=== PATIENT | female | born 1975 | race Caucasian/White ===

== ENCOUNTER 2017-08-30 01:49 | Emergency (ER) | payer SELFPAY ==
[2017-08-30] MEDS ORDERED: TORAdol 30 mg Injection ONE (02:14)
--- NOTE | 2017-08-30 02:14 | ERPHSYRPT ---
- History of Present Illness Time Seen by Provider: 08/30/17 02:08 Source: patient Exam Limitations: no limitations Patient Subjective Stated Complaint: pt states she hit her toe on a stair and thinks it may be broken Triage Nursing Assessment: pt alert and oriented, answers questions approp. skin pink warm and dry. respirations nonlabored with lungs cta. pt ambulatory with steady gait noted. lt foot 5th digit, slightly abducted . Physician History: The patient is a 42-year-old female with her complaining that she stubbed her left little toe on a stairway for her dog is up to her bed a few minutes ago. She has pain in her left little toe. She did not take any analgesics or put ice on it. Past medical history significant for GERD and allergies. Method of Injury: direct blow Occurred: just prior to arrival Quality: constant, sharpness Severity of Pain-Max: moderate Severity of Pain-Current: moderate Lower Extremities Pain: 5th toe: left Modifying Factors: Improves With: nothing Associated Symptoms: none Allergies/Adverse Reactions: Penicillins Allergy (Verified 08/30/17 02:03) Hives promethazine HCl [From Phenergan] Allergy (Verified 08/30/17 02:03) Vomiting Sulfa (Sulfonamide Antibiotics) Allergy (Verified 08/30/17 02:03) Hives SULFATES Allergy (Uncoded 08/30/17 02:03) Hives Home Medications: Esomeprazole Magnesium [Nexium 24Hr] 20 mg PO HS 02/05/16 [History] Loratadine 10 mg [Claritin 10 mg] 10 mg PO HS 08/30/17 [History] Hx Tetanus, Diphtheria Vaccination/Date Given: Yes Hx Influenza Vaccination/Date Given: No Hx Pneumococcal Vaccination/Date Given: No Immunizations Up to Date: Yes - Review of Systems Constitutional: No Fever, No Chills Eyes: No Symptoms Ears, Nose, & Throat: No Symptoms Respiratory: No Cough, No Dyspnea Cardiac: No Chest Pain, No Edema, No Syncope Abdominal/Gastrointestinal: No Abdominal Pain, No Nausea, No Vomiting, No Diarrhea Genitourinary Symptoms: No Dysuria Musculoskeletal: Injury, Joint Pain, No Back Pain, No Neck Pain Skin: No Rash Neurological: No Dizziness, No Focal Weakness, No Sensory Changes Psychological: No Symptoms Endocrine: No Symptoms Hematologic/Lymphatic: No Symptoms Immunological/Allergic: No Symptoms All Other Systems: Reviewed and Negative - Past Medical History Pertinent Past Medical History: No Neurological History: Migraines ENT History: No Pertinent History Cardiac History: No Pertinent History Respiratory History: No Pertinent History Endocrine Medical History: No Pertinent History Musculoskeletal History: No Pertinent History GI Medical History: No Pertinent History History: No Pertinent History Psycho-Social History: No Pertinent History Female Reproductive Disorders: No Pertinent History Other Medical History: back pain - Past Surgical History Past Surgical History: Yes Neuro Surgical History: No Pertinent History Cardiac: No Pertinent History Respiratory: No Pertinent History Gastrointestinal: Cholecystectomy Genitourinary: No Pertinent History Female Surgical History: Section, Hysterectomy Other Surgical History: BROKEN NOSE REPAIR - Social History Smoking Status: Never smoker Exposure to second hand smoke: No Drug Use: none Patient Lives Alone: No - Female History Hx Last Menstrual Period: hyster Hx Now: No - Nursing Vital Signs Nursing Vital Signs: Initial Vital Signs Temperature 98.6 F 08/30/17 01:53 Pulse Rate 80 08/30/17 01:53 Respiratory Rate 18 08/30/17 01:53 Blood Pressure 141/105 08/30/17 01:53 Pain Scale Pain Intensity 5 - Physical Exam General Appearance: alert Eyes, Ears, Nose, Throat Exam: moist mucous membranes Neck Exam: non-tender, supple Cardiovascular/Respiratory Exam: chest non-tender, normal breath sounds, regular rate/rhythm, no respiratory distress Gastrointestinal/Abdominal Exam: non-tender, guarding Back Exam: normal inspection, No vertebral tenderness Hips Exam: bilateral: non-tender, normal inspection Legs Exam: bilateral leg: non-tender, normal inspection Knees Exam: bilateral knee: non-tender, normal inspection Ankle Exam: bilateral ankle: non-tender, normal inspection Foot Exam: right foot: non-tender, normal inspection, left foot: limited range of motion (left little toe), bilateral foot: swelling (left little toe) Neuro/Tendon Exam: normal sensation, normal motor functions Mental Status Exam: alert, oriented x 3, cooperative Skin Exam: normal color, warm, dry SpO2 Interpretation: normal Oxygen Delivery: Room Air - Radiology Exams Left Ankle X-ray Interpretation: Interpreted by me, Non-displaced Fracture (nondisplaced fracture of proximal phylange of left 5th toe.) Ordered Tests: Active Orders 24 hr Category Date Time Status Cold Application STAT Care 08/30/17 02:12 Active FOOT (MINIMUM 3 VIEWS) Stat Exams 08/30/17 02:12 Ordered Medication Summary Discontinued Medications Generic Name Dose Route Start Last Admin Trade Name Lupillo PRN Reason Stop Dose Admin Ketorolac Tromethamine 60 mg 08/30/17 02:12 08/30/17 02:20 Toradol 30 Mg Injection IM 08/30/17 02:13 60 mg STAT ONE Administration Ketorolac Tromethamine Confirm 08/30/17 02:14 Toradol 30 Mg Injection Administered 08/30/17 02:15 Dose 60 mg .ROUTE .Get[employer]-MED ONE - Progress Progress: improved - Departure Time of Disposition: 02:32 Departure Disposition: Home Clinical Impression: Fracture of left toe Condition: Stable Critical Care Time: No Referrals: Dorothy Amaya, [employer] [Primary Care Provider] - Additional Instructions: You have fractured bone at the base of her left little toe. You were given Toradol 60 mg by IM in the ER. Continue with naproxen 500 mg 2 times a day as needed for pain. Apply ice to the area as needed. Keep the toes bhavesh taped as needed. He will take 6-8 weeks for the fractured bone to heal. Follow-up with your primary medical doctor next week. Prescriptions: Naproxen 500 mg PO BID PRN #30 tablet.
[2017-08-30] MEDS: TORAdol 30 mg Injection IM ONE (02:20)
[2017-08-30 02:54] VITALS: BP 120/81; PULSE 69; O2SAT 98
--- NOTE | 2017-08-30 08:35 | XRAY ---
Indication: Pain following injury. Comparison: None 3 nonweightbearing views of the left foot demonstrates small plantar heel spur and nondisplaced acute fracture involving the shaft of the 5th proximal phalanx with soft tissue swelling. No other bony, articular, or soft tissue abnormalities.
== END 2017-08-30 02:52 | disposition home or self-care (01) ==
LOC: ED 01:49
DX: S92.592A Other fracture of left lesser toe(s), initial encounter for closed fracture (principal); W22.09XA Striking against other stationary object, initial encounter
CPT/HCPCS: 73630; 96372; 99284; J1885

== ENCOUNTER 2017-09-08 22:35 | Emergency (ER) | payer SELFPAY ==
[2017-09-08] MEDS ORDERED: Adacel Vial IM ONE ×2 (23:27→23:53)
[2017-09-08] MEDS ORDERED: TYLENOL EXTRA STRENGTH 500 MG PO STA (23:57)
[2017-09-09] MEDS ORDERED: TYLENOL EXTRA STRENGTH 500 MG ONE (00:01)
--- NOTE | 2017-09-09 00:02 | ERPHSYRPT ---
- History of Present Illness Time Seen by Provider: 09/08/17 23:55 Source: patient Patient Subjective Stated Complaint: pt attempted to break up her two dogs from fighting; sustained multiple puncture wounds to right wrist/forearm, right upper anterior thigh, and right knee; minor bleeding upon arrival to er. Triage Nursing Assessment: pt a&o x3; skin p, w, & d; minor bleeding controlled upon arrival; pt ambulated to room per self; spouse at bedside. Physician History: Pt states, she attempted to brake up a fight between her dogs, one of them bit her at her right forearm, and right thigh, and knee. She denies other injury, the dog is up to date with his shots, but she is not sure about her own tetanus status. She denies other injury or complaints. Timing/Duration: hour(s) (1) Quality: painful Severity: mild Location: extremities (right forearm, right medial thigh and anterior knee.) Possible Causes: other (dog nites) Associated Symptoms: denies symptoms Allergies/Adverse Reactions: Penicillins Allergy (Verified 08/30/17 02:03) Hives promethazine HCl [From Phenergan] Allergy (Verified 08/30/17 02:03) Vomiting Sulfa (Sulfonamide Antibiotics) Allergy (Verified 08/30/17 02:03) Hives SULFATES Allergy (Uncoded 08/30/17 02:03) Hives Home Medications: Esomeprazole Magnesium [Nexium 24Hr] 20 mg PO HS 02/05/16 [History] Loratadine 10 mg [Claritin 10 mg] 10 mg PO HS 08/30/17 [History] Hx Tetanus, Diphtheria Vaccination/Date Given: No Hx Influenza Vaccination/Date Given: No Hx Pneumococcal Vaccination/Date Given: No Immunizations Up to Date: No - Review of Systems Constitutional: No Symptoms Musculoskeletal: Other (multiple punctures wounds, dog bites to right forearm, right anterior knee and medial thigh) All Other Systems: Reviewed and Negative - Past Medical History Pertinent Past Medical History: No Neurological History: Migraines ENT History: No Pertinent History Cardiac History: No Pertinent History Respiratory History: No Pertinent History Endocrine Medical History: No Pertinent History Musculoskeletal History: No Pertinent History GI Medical History: No Pertinent History History: No Pertinent History Psycho-Social History: No Pertinent History Female Reproductive Disorders: No Pertinent History Other Medical History: back pain - Past Surgical History Past Surgical History: Yes Neuro Surgical History: No Pertinent History Cardiac: No Pertinent History Respiratory: No Pertinent History Gastrointestinal: Cholecystectomy Genitourinary: No Pertinent History Female Surgical History: Section, Hysterectomy Other Surgical History: BROKEN NOSE REPAIR - Social History Smoking Status: Never smoker Exposure to second hand smoke: No Drug Use: none Patient Lives Alone: No - Female History Hx Last Menstrual Period: hyster Hx Now: No - Nursing Vital Signs Nursing Vital Signs: Initial Vital Signs Temperature 98.7 F 09/08/17 23:21 Pulse Rate 88 09/08/17 23:21 Respiratory Rate 20 09/08/17 23:21 Blood Pressure 140/92 09/08/17 23:21 O2 Sat by Pulse Oximetry 98 09/08/17 23:21 Pain Scale Pain Intensity 8 - Physical Exam General Appearance: no apparent distress Eye Exam: eyes nml inspection Ears, Nose, Throat Exam: normal ENT inspection, moist mucous membranes Neck Exam: normal inspection, non-tender Respiratory Exam: normal breath sounds, lungs clear, airway intact Cardiovascular Exam: regular rate/rhythm, normal heart sounds, normal peripheral pulses, No murmur Gastrointestinal/Abdomen Exam: soft, No tenderness, No ecchymosis Back Exam: normal inspection, No CVA tenderness Extremity Exam: other (Right dorsal ulnar forearm: 3 puncture wounds, dog bites , no bleeding, skin is slightly bruised, but no large hematoma, or swelling, good distal pulses and sensation, right anterior knee: single dog bite, puncture wound, also 3 puncture wounds, dog bites in the right medial thigh without severe bleeding, or hematoma, only mildly bruised skin. good distal pilses and sensation of the right leg.) Neurologic Exam: alert, oriented x 3, cooperative, normal mood/affect Skin Exam: normal color, warm, dry SpO2 Interpretation: normal SpO2: 98 Oxygen Delivery: Room Air Procedures - Laceration/Wound Repair Right Thigh Wound Location: Right, lower arm, upper leg Wound Length (cm): 0.5 Wound's Depth, Shape: irregular Wound Explored: contaminated Irrigated: Yes Hibiclens Prep: No Layer Closure?: No Sterile Dressing Applied?: Yes Splint Applied?: No Progress: 09/09/17 00:03 All wounds are puncture wounds, they were irrigated with saline, and covered with sterile gauze dressing. She was given Td and PO antibiotics ( Clindamycicn and Levaquin. - Course Nursing assessment & vital signs reviewed: Yes - Radiology Exams Right Forearm X-ray Interpretation: Interpreted by me, Negative Ordered Tests: Active Orders 24 hr Category Date Time Status Wound Care STAT Care 09/08/17 23:27 Active FOREARM Routine Exams 09/09/17 Ordered Medication Summary Discontinued Medications Generic Name Dose Route Start Last Admin Trade Name Lupillo PRN Reason Stop Dose Admin Acetaminophen 1,000 mg 09/08/17 23:57 09/09/17 00:03 Tylenol Extra Strength 500 Mg PO 09/08/17 23:58 1,000 mg STAT STA Administration Acetaminophen Confirm 09/09/17 00:01 Tylenol Extra Strength 500 Mg Administered 09/09/17 00:02 Dose 1,000 mg .ROUTE .STK-MED ONE Clindamycin HCl 300 mg 09/09/17 00:06 Cleocin 150 Mg Capsule PO 09/09/17 00:07 STAT ONE Diphtheria/Tetanus/Acell Pertussis 0.5 ml 09/08/17 23:27 09/08/17 23:55 Adacel Vial IM 09/08/17 23:28 0.5 ml .ONCE ONE Administration Diphtheria/Tetanus/Acell Pertussis Confirm 09/08/17 23:53 Adacel Vial Administered 09/08/17 23:54 Dose 0.5 ml IM .STK-MED ONE Levofloxacin 500 mg 09/09/17 00:06 Levofloxacin 250mg Tablet PO 09/09/17 00:07 STAT ONE - Progress Progress: improved Progress Note: 09/09/17 00:04 Pt has been stable, no severe pain or distress. Counseled pt/family regarding: diagnosis, need for follow-up, rad results - Departure Time of Disposition: 00:34 Departure Disposition: Home Clinical Impression: Dog bite Qualifiers: Encounter type: initial encounter Qualified Code(s): W54.0XXA - Bitten by dog, initial encounter Condition: Stable Critical Care Time: No Referrals: Dorothy Amaya, [employer] [Primary Care Provider] - Instructions: Animal Bites (DC) Additional Instructions: Clean wounds with antiseptic solutions twice daily, and change clean, sterile dressing, follow up with your physician in 2-3 days, or return to ED for wound check, or if severe pain, swelling, purulent discharge or fever> 102 F! Prescriptions: Clindamycin HCl [Cleocin HCl] 300 mg PO QID 10 Days #40 capsule Levofloxacin [Levaquin] 500 mg PO AC 10 Days #10 tablet
[2017-09-09] MEDS ORDERED: CLEOCIN 150 MG CAPSULE PO ONE (00:06)
[2017-09-09] MEDS ORDERED: Levofloxacin 250MG Tablet PO ONE (00:06)
[2017-09-09] MEDS ORDERED: CLEOCIN 150 MG CAPSULE ONE (00:37)
[2017-09-09] MEDS ORDERED: Levofloxacin 250MG Tablet ONE (00:38)
[2017-09-09 01:18] VITALS: BP 119/91; PULSE 72; O2SAT 96
--- NOTE | 2017-09-09 08:55 | XRAY ---
Indication: Dog bite. Comparison: May 14, 2014. 2 views of the right forearm demonstrates new posterior soft tissue swelling/subcutaneous air presumed related to reported dog bite. Again old 5th metacarpal fracture. No other bony, articular, or soft tissue abnormalities.
== END 2017-09-09 01:10 | disposition home or self-care (01) ==
LOC: ED 22:35
DX: S51.851A Open bite of right forearm, initial encounter (principal); S71.151A Open bite, right thigh, initial encounter; S81.051A Open bite, right knee, initial encounter; W54.0XXA Bitten by dog, initial encounter; Y92.009 Unspecified place in unspecified non-institutional (private) residence as the place of occurrence of the external cause
CPT/HCPCS: 73090; 90471; 90715; 99284; A9270-GY

== ENCOUNTER 2019-08-04 17:32 | Emergency (ER) | payer BC ==
--- NOTE | 2019-08-04 17:37 | ERPHSYRPT ---
- History of Present Illness Time Seen by Provider: 08/04/19 17:37 Historian: patient Exam Limitations: no limitations Physician History: This is a 43-year-old white female who has a history of chronic back pain with a TENS unit in place, history of migraines, she has had a section in the past and a hysterectomy. Patient began having some left flank pain on Tuesday prior to this evaluation by evening the pain was worse and has migrated and radiated down to the left groin area. It seemed to lighten but still present over Tuesday and then this morning the pain was much worse after working in the yard. And arrives to the emergency room very uncomfortable and cannot lie still. Chest pain and she denies shortness of breath. She denies nausea vomiting diarrhea. Timing/Duration: day(s) (3 days) Activities at Onset: none Quality: sharpness, stabbing Abdominal Pain Onset Location: flank (Flank) Pain Radiation: LLQ, groin (Left) Severity of Pain-Max: moderate Severity of Pain-Current: moderate Modifying Factors: Improves With: other (Patient cannot get comfortable) Associated Symptoms: denies symptoms Previous symptoms: no prior history Allergies/Adverse Reactions: Penicillins Allergy (Verified 08/04/19 17:55) Hives promethazine HCl [From Phenergan] Allergy (Verified 08/04/19 17:55) Vomiting Sulfa (Sulfonamide Antibiotics) Allergy (Verified 08/04/19 17:55) Hives SULFATES Allergy (Uncoded 08/04/19 17:55) Hives Home Medications: AMITRIPTYLINE HCL 50 mg Tab [AMITRIPTYLINE HCL 50 mg Tablet] 50 mg PO HS [History] Buprenorphine HCl [Belbuca] 300 mg PO BID 08/04/19 [History] Cyclobenzaprine HCl 10 mg [Cyclobenzaprine 10 MG] 10 mg PO TID 08/04/19 [ History] Meloxicam 7.5 mg PO BID 08/04/19 [History] Hx Tetanus, Diphtheria Vaccination/Date Given: No Hx Influenza Vaccination/Date Given: No Hx Pneumococcal Vaccination/Date Given: No Travel Risk - International Travel Have you traveled outside of the country in past 3 weeks: No Have you or anyone close to you been diagnosed with or: No Do your reside in a community with a known COVID-19 case?: Yes If Yes where:: [facility] - Coronavirus Screening Has patient experienced Coronavirus symptoms: No - Review of Systems Constitutional: No Symptoms Eyes: No Symptoms Ears, Nose, & Throat: No Symptoms Respiratory: No Symptoms Cardiac: No Symptoms Abdominal/Gastrointestinal: No Symptoms Genitourinary Symptoms: Flank Pain (Left) Musculoskeletal: No Symptoms Skin: No Symptoms Neurological: No Symptoms Psychological: No Symptoms Endocrine: No Symptoms Hematologic/Lymphatic: No Symptoms Immunological/Allergic: No Symptoms All Other Systems: Reviewed and Negative - Past Medical History Pertinent Past Medical History: No Neurological History: Migraines ENT History: No Pertinent History Cardiac History: No Pertinent History Respiratory History: No Pertinent History Endocrine Medical History: No Pertinent History Musculoskeletal History: No Pertinent History GI Medical History: No Pertinent History History: No Pertinent History Psycho-Social History: No Pertinent History Female Reproductive Disorders: No Pertinent History Other Medical History: back pain - Past Surgical History Past Surgical History: Yes Neuro Surgical History: No Pertinent History Cardiac: No Pertinent History Respiratory: No Pertinent History Gastrointestinal: Cholecystectomy Genitourinary: No Pertinent History Female Surgical History: Section, Hysterectomy Other Surgical History: BROKEN NOSE REPAIR - Social History Smoking Status: Never smoker Exposure to second hand smoke: No Drug Use: none Patient Lives Alone: No - Nursing Vital Signs Nursing Vital Signs: Initial Vital Signs Temperature 98.2 F 08/04/19 17:36 Pulse Rate 105 H 08/04/19 17:36 Blood Pressure 135/86 08/04/19 17:36 O2 Sat by Pulse Oximetry 97 08/04/19 17:36 Pain Scale Pain Intensity 3 - Physical Exam General Appearance: moderate distress, alert, anxiety Eye Exam: PERRL/EOMI, eyes nml inspection Ears, Nose, Throat Exam: normal ENT inspection, moist mucous membranes Neck Exam: normal inspection, non-tender, supple, full range of motion Respiratory Exam: normal breath sounds, lungs clear, airway intact, No chest tenderness, No respiratory distress Cardiovascular Exam: regular rate/rhythm, normal heart sounds, normal peripheral pulses Gastrointestinal/Abdomen Exam: soft, normal bowel sounds, No tenderness Pelvic Exam: not done Rectal Exam: not done Back Exam: normal inspection, normal range of motion, CVA tenderness (Left), No vertebral tenderness Extremity Exam: normal inspection, normal range of motion, pelvis stable Neurologic Exam: alert, oriented x 3, cooperative, 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, normal mood/affect, nml cerebellar function, nml station & gait Skin Exam: normal color Lymphatic Exam: No adenopathy SpO2 Interpretation: normal O2 Delivery: Room Air Ordered Tests: Active Orders 24 hr Category Date Time Status Catheter-Vesuvius Kong STAT Care 08/04/19 17:49 Active IV Insertion STAT Care 08/04/19 17:49 Active ABDOMEN AND PELVIS W/0 CONTRAS [CT] Stat Exams 08/04/19 17:50 Taken AMYLASE Stat Lab 08/04/19 17:55 Completed CBC W DIFF Stat Lab 08/04/19 17:55 Completed CMP Stat Lab 08/04/19 17:55 Completed CULTURE,URINE Stat Lab 08/04/19 17:55 Received LIPASE Stat Lab 08/04/19 17:55 Completed Lactic Acid Stat Lab 08/04/19 17:56 Completed UA W/RFX UR CULTURE Stat Lab 08/04/19 17:55 Completed Urine Triage Profile Stat Lab 08/04/19 17:55 Completed Medication Summary Discontinued Medications Generic Name Dose Route Start Last Admin Trade Name Freq PRN Reason Stop Dose Admin Hydromorphone HCl 1 mg 08/04/19 17:49 08/04/19 18:00 Hydromorphone 1 Mg/Ml Ampule IV 08/04/19 17:50 1 mg STAT ONE Administration Hydromorphone HCl Confirm 08/04/19 17:59 Hydromorphone 1 Mg/Ml Ampule Administered 08/04/19 18:00 Dose 1 mg .ROUTE .STK-MED ONE Sodium Chloride 1,000 mls @ 999 mls/hr 08/04/19 17:49 08/04/19 19:09 Sodium Chloride 0.9% 1000 Ml IV 08/04/19 18:49 Infused .Q1H1M STA Infusion Sodium Chloride Confirm 08/04/19 17:59 Sodium Chloride 0.9% 1000 Ml Administered 08/04/19 18:00 Dose 1,000 mls @ ud .ROUTE .STK-MED ONE Ketorolac Tromethamine 30 mg 08/04/19 18:22 08/04/19 18:30 Toradol 30 Mg Injection IV 08/04/19 18:23 30 mg STAT ONE Administration Ketorolac Tromethamine Confirm 08/04/19 18:27 Toradol 30 Mg Injection Administered 08/04/19 18:28 Dose 30 mg .ROUTE .STK-MED ONE Lorazepam 1 mg 08/04/19 18:23 08/04/19 18:30 Ativan 2 Mg/1 Ml Vial IV 08/04/19 18:24 1 mg STAT ONE Administration Lorazepam Confirm 08/04/19 18:29 Ativan 2 Mg/1 Ml Vial Administered 08/04/19 18:30 Dose 2 mg .ROUTE .STK-MED ONE Ondansetron HCl 4 mg 08/04/19 17:49 08/04/19 18:00 Zofran 4 Mg/2 Ml Vial IV 08/04/19 17:50 4 mg STAT ONE Administration Ondansetron HCl Confirm 08/04/19 17:59 Zofran 4 Mg/2 Ml Vial Administered 08/04/19 18:00 Dose 4 mg .ROUTE .STK-MED ONE Lab/Rad Data: Laboratory Result Diagrams 08/04/19 17:55 08/04/19 17:55 Laboratory Results 08/04/19 08/04/19 08/04/19 Range/Units 17:56 17:55 17:55 WBC (4.0-10.5) K/mm3 RBC (4.1-5.4) M/mm3 Hgb (12.0-16.0) gm/dl Hct (35-47) % MCV (78-100) fl MCH (26-32) pg MCHC (32-36) g/dl RDW (11.5-14.0) % Plt Count (150-450) K/mm3 MPV (7.5-11.0) fl Gran % (36.0-66.0) % Eos # (Auto) (0-0.5) Absolute Lymphs (auto) (1.0-4.6) Absolute Monos (auto) (0.0-1.3) Lymphocytes % (24.0-44.0) % Monocytes % (0.0-12.0) % Eosinophils % (0.00-5.0) % Basophils % (0.0-0.4) % Absolute Granulocytes (1.4-6.9) Basophils # (0-0.4) Sodium (137-145) mmol/L Potassium (3.5-5.1) mmol/L Chloride (98-107) mmol/L Carbon Dioxide (22-30) mmol/L Anion Gap (5-15) MEQ/L BUN (7-17) mg/dL Creatinine (0.52-1.04) mg/dL Estimated GFR ML/MIN Glucose (74-106) mg/dL Lactic Acid 2.0 (0.4-2.0) Calcium (8.4-10.2) mg/dL Total Bilirubin (0.2-1.3) mg/dL AST (14-36) U/L ALT (0-35) U/L Alkaline Phosphatase (38-126) U/L Serum Total Protein (6.3-8.2) g/dL Albumin (3.5-5.0) g/dL Amylase (30-110) U/L Lipase (23-300) U/L Urine Color MITCHELL (YELLOW) Urine Appearance TURBID (CLEAR) Urine pH 5.0 (5-6) Ur Specific [place] 1.029 (1.005-1.025) Urine Protein 100 (Negative) Urine Ketones TRACE (NEGATIVE) Urine Blood LARGE (0-5) Nick/ul Urine Nitrite NEGATIVE (NEGATIVE) Urine Bilirubin NEGATIVE (NEGATIVE) Urine Urobilinogen 2 (0-1) mg/dL Ur Leukocyte Esterase NEGATIVE (NEGATIVE) Urine WBC (Auto) 0-2 (0-5) /HPF Urine RBC (Auto) 16-25 (0-2) /HPF U Epithel Cells (Auto) RARE (FEW) /HPF Urine Bacteria (Auto) NONE (NEGATIVE) /HPF Urine Mucus (Auto) SLIGHT (NEGATIVE) /HPF Urine Culture Reflexed ORDERED SEPARATELY (NO) Urine Glucose NEGATIVE (NEGATIVE) mg/dL Urine Opiates Level NEGATIVE (NEGATIVE) Ur Methadone NEGATIVE (NEGATIVE) Urine Barbiturates NEGATIVE (NEGATIVE) Ur Phencyclidine (PCP) NEGATIVE (NEGATIVE) Urine Amphetamine NEGATIVE (NEGATIVE) U Benzodiazepine Level NEGATIVE (NEGATIVE) Urine Cocaine NEGATIVE (NEGATIVE) Urine Marijuana (THC) NEGATIVE (NEGATIVE) 08/04/19 08/04/19 Range/Units 17:55 17:55 WBC 12.0 H (4.0-10.5) K/mm3 RBC 5.03 (4.1-5.4) M/mm3 Hgb 15.2 (12.0-16.0) gm/dl Hct 43.6 (35-47) % MCV 86.7 (78-100) fl MCH 30.2 (26-32) pg MCHC 34.9 (32-36) g/dl RDW 13.0 (11.5-14.0) % Plt Count 542 H (150-450) K/mm3 MPV 10.1 (7.5-11.0) fl Gran % 62.9 (36.0-66.0) % Eos # (Auto) 0.21 (0-0.5) Absolute Lymphs (auto) 3.14 (1.0-4.6) Absolute Monos (auto) 1.05 (0.0-1.3) Lymphocytes % 26.2 (24.0-44.0) % Monocytes % 8.8 (0.0-12.0) % Eosinophils % 1.8 (0.00-5.0) % Basophils % 0.3 (0.0-0.4) % Absolute Granulocytes 7.56 H (1.4-6.9) Basophils # 0.04 (0-0.4) Sodium 141 (137-145) mmol/L Potassium 3.8 (3.5-5.1) mmol/L Chloride 105 (98-107) mmol/L Carbon Dioxide 24 (22-30) mmol/L Anion Gap 16.0 H (5-15) MEQ/L BUN 13 (7-17) mg/dL Creatinine 0.81 (0.52-1.04) mg/dL Estimated GFR > 60.0 ML/MIN Glucose 125 H (74-106) mg/dL Lactic Acid (0.4-2.0) Calcium 10.3 H (8.4-10.2) mg/dL Total Bilirubin 1.10 (0.2-1.3) mg/dL AST 86 H (14-36) U/L ALT 127 H (0-35) U/L Alkaline Phosphatase 131 H (38-126) U/L Serum Total Protein 8.4 H (6.3-8.2) g/dL Albumin 4.8 (3.5-5.0) g/dL Amylase 52 (30-110) U/L Lipase 61 (23-300) U/L Urine Color (YELLOW) Urine Appearance (CLEAR) Urine pH (5-6) Ur Specific [place] (1.005-1.025) Urine Protein (Negative) Urine Ketones (NEGATIVE) Urine Blood (0-5) Nick/ul Urine Nitrite (NEGATIVE) Urine Bilirubin (NEGATIVE) Urine Urobilinogen (0-1) mg/dL Ur Leukocyte Esterase (NEGATIVE) Urine WBC (Auto) (0-5) /HPF Urine RBC (Auto) (0-2) /HPF U Epithel Cells (Auto) (FEW) /HPF Urine Bacteria (Auto) (NEGATIVE) /HPF Urine Mucus (Auto) (NEGATIVE) /HPF Urine Culture Reflexed (NO) Urine Glucose (NEGATIVE) mg/dL Urine Opiates Level (NEGATIVE) Ur Methadone (NEGATIVE) Urine Barbiturates (NEGATIVE) Ur Phencyclidine (PCP) (NEGATIVE) Urine Amphetamine (NEGATIVE) U Benzodiazepine Level (NEGATIVE) Urine Cocaine (NEGATIVE) Urine Marijuana (THC) (NEGATIVE) - Progress Progress: improved, pain not gone completely, re-examined Progress Note: 08/04/19 19:25 CAT scan of the abdomen and pelvis shows a 3 mm left-sided UVJ calculus with mild left hydronephrosis. Counseled pt/family regarding: lab results, diagnosis, need for follow-up, rad results - Departure Departure Disposition: Home Clinical Impression: Left ureteral calculus Condition: Stable Critical Care Time: No Referrals: MANJEET ROMERO NP [Primary Care Provider] - Additional Instructions: Drink plenty of fluids. Take your medication as prescribed. Follow-up with your primary care physician for further management. Return to the emergency department if your symptoms worsen Prescriptions: Hydrocodone/APAP 5-325 Tab^^^ [Singer 5-325 Tablet^^^] 1 tab PO Q8H PRN PRN #8 tablet MDD 3 PRN Reason: Pain Tamsulosin HCl 0.4 mg [Flomax 0.4 MG] 0.4 mg PO DAILY #7 cap
[2019-08-04] MEDS ORDERED: Hydromorphone 1 mg/ml Ampule IV ONE (17:49)
[2019-08-04] MEDS ORDERED: Sodium Chloride 0.9% 1000 ML 1,000 ML IV STA (17:49)
[2019-08-04] MEDS ORDERED: Zofran 4 MG/2 ML VIAL IV ONE (17:49)
[2019-08-04] MEDS ORDERED: Sodium Chloride 0.9% 1000 ML 1,000 ML ONE (17:59)
[2019-08-04] MEDS ORDERED: Zofran 4 MG/2 ML VIAL ONE (17:59)
[2019-08-04] MEDS ORDERED: Hydromorphone 1 mg/ml Ampule ONE (17:59)
[2019-08-04 18:00] LABS: Absolute Neutrophil Ct (ANC) 7.56 (1.4-6.9); BASOPHIL % 0.3 % (0.0-0.4); Basophil (Absolute #) 0.04 (0-0.4); Eosinophil % 1.8 % (0.00-5.0); Eosinophil (Absolute #) 0.21 (0-0.5); Hematocrit 43.6 % (35-47); Hemoglobin 15.2 gm/dl (12.0-16.0); Lymphocyte (Absolute #) 3.14 (1.0-4.6); Lymphocytes % 26.2 % (24.0-44.0); Mean Cell Volume 86.7 fl (78-100); Mean Corpuscular Hemoglobin 30.2 pg (26-32); Mean Corpuscular Hgb Concent. 34.9 g/dl (32-36); Mean Platelet Volume 10.1 fl (7.5-11.0); Monocyte (Absolute #) 1.05 (0.0-1.3); Monocytes % 8.8 % (0.0-12.0); Neutrophil % 62.9 % (36.0-66.0); Platelet Count 542 K/mm3 (150-450); Red Blood Count 5.03 M/mm3 (4.1-5.4)
[2019-08-04 18:07] LABS: Appearance TURBID (CLEAR); Bilirubin NEGATIVE (NEGATIVE); Blood LARGE Ery/ul (0-5); Epithelial Cells RARE /HPF (FEW); Glucose NEGATIVE (NEGATIVE); Ketones TRACE (NEGATIVE); Leukocyte Esterase NEGATIVE (NEGATIVE); Mucus SLIGHT /HPF (NEGATIVE); Nitrite NEGATIVE (NEGATIVE); Protein,Urine Dip 100 (Negative); Specific Gravity 1.029 (1.005-1.025); Urobilinogen 2 mg/dL (0-1); WBC 0-2 /HPF (0-5)
[2019-08-04 18:14] LABS: ALBUMIN 4.8 g/dL (3.5-5.0); ALKALINE PHOSPHATASE 131 U/L (38-126); AMYLASE 52 U/L (30-110); BLOOD UREA NITROGEN 13 mg/dL (7-17); CHLORIDE 105 mmol/L (98-107); Calcium 10.3 mg/dL (8.4-10.2); Carbon Dioxide 24 mmol/L (22-30); Creatinine 1 0.81 mg/dL (0.52-1.04); Glucose 125 mg/dL (74-106); LIPASE 61 U/L (23-300); Potassium 3.8 mmol/L (3.5-5.1); SGOT/AST 86 U/L (14-36); SGPT/ALT 127 U/L (0-35); SODIUM 141 mmol/L (137-145); Total Protein 8.4 g/dL (6.3-8.2)
[2019-08-04 18:17] LABS: Amphetamine,Urine NEGATIVE (NEGATIVE); Barbiturate,Urine NEGATIVE (NEGATIVE); Benzodiazepine,Urine NEGATIVE (NEGATIVE); Cocaine,Urine NEGATIVE (NEGATIVE); Methadone,Urine NEGATIVE (NEGATIVE); Opiate,Urine NEGATIVE (NEGATIVE); PCP,Urine NEGATIVE (NEGATIVE); THC,Urine NEGATIVE (NEGATIVE)
[2019-08-04] MEDS ORDERED: TORAdol 30 mg Injection IV ONE (18:22)
[2019-08-04] MEDS ORDERED: Ativan 2 MG/1 ML VIAL IV ONE (18:23)
[2019-08-04] MEDS ORDERED: TORAdol 30 mg Injection ONE (18:27)
[2019-08-04] MEDS ORDERED: Ativan 2 MG/1 ML VIAL ONE (18:29)
[2019-08-04 19:22] VITALS: BP 154/92
[2019-08-04] MEDS ORDERED: NORCO 5/325 MG PO ONE (19:33)
[2019-08-04] MEDS ORDERED: NORCO 5/325 MG ONE (19:36)
[2019-08-04 20:09] VITALS: PULSE 92; O2SAT 98
--- NOTE | 2019-08-04 21:04 | XRAY ---
Indication: Bilateral flank pain. Multiple contiguous axial images obtained through the abdomen and pelvis without contrast as ordered. Comparison: None Lung bases are clear. Heart is not enlarged. Small hiatal hernia. Stomach is distended with food/fluid. Noncontrasted stomach and bowel loops appear nonobstructed. Normal appendix. There is mild/moderate diffuse scattered colonic fecal debris throughout greatest in the right hemicolon. Previous cholecystectomy. No free fluid/air. Distal left ureter demonstrates a 3-4 mm calculus just proximal to the UVJ. Proximal left ureter is prominent up to 8mm and there is mild hydronephrosis consistent with partial obstructive uropathy. Additional left renal punctate calculus. Kong balloon catheter empties the urinary bladder. Fatty hepatomegaly measuring 19.5 cm. Remaining liver, pancreas, spleen, adrenal glands, kidneys, ureters, bladder, and aorta appear unremarkable for noncontrast exam.. Osseous structures intact. Right lower back demonstrates spinal stimulator device with epidural leads terminating T8 level. Impression: 1. 3-4 mm distal left ureteral calculus producing partial obstruction. Additional left renal punctate calculus and Kong catheter in situ. 2. Diffuse fecal stasis without obstruction and small hiatal hernia. 3. Fatty hepatomegaly. Comment: Preliminary interpretation was made by [facility]. No critical discrepancy.
== END 2019-08-04 20:13 | disposition home or self-care (01) ==
LOC: ED 17:32
DX: N20.1 Calculus of ureter (principal); N13.30 Unspecified hydronephrosis
CPT/HCPCS: 36415; 51702; 74176; 80053; 80307; 81001; 82150; 83605; 83690; 85025; 87086; 96360; 96374; 96375; 99284; J1170; J1885; J2060; J2405; A9270-GY

== ENCOUNTER 2021-09-09 19:32 | Emergency (ER) | payer BC ==
--- NOTE | 2021-09-09 19:47 | ERPHSYRPT ---
- History of Present Illness Time Seen by Provider: 09/09/21 19:47 Source: patient, family Exam Limitations: no limitations Physician History: This is a 46-year-old white female who states that approxi-2 years ago a balloon stent was placed (?) By Dr. Vela, general surgeon. However, she does not recall which Dr. Vela general surgeon performed the procedure. At 6 PM this evening patient ate steak. She now has a food bolus in place and cannot swallow even her saliva. She is not short of breath. She has had no vomiting. Patient states that she has no chest pain and no shortness of breath. The patient spoke with Dr. Johnathan Vela prior to her arrival to the emergency department. Patient has a history of chronic low back pain and migraine headaches. She is not on any anticoagulation therapy. Timing/Duration: abrupt onset Severity: mild (To moderate) Prearrival Treatment: no prearrival treatment Modifying Factors: Improves With: other (Cannot swallow her secretions) Allergies/Adverse Reactions: Penicillins Allergy (Verified 09/09/21 19:46) Hives promethazine HCl [From Phenergan] Allergy (Verified 09/09/21 19:46) Vomiting Sulfa (Sulfonamide Antibiotics) Allergy (Verified 09/09/21 19:46) Hives SULFATES Allergy (Uncoded 08/04/19 17:55) Hives Home Medications: AMITRIPTYLINE HCL 50 mg Tab [AMITRIPTYLINE HCL 50 mg Tablet] 50 mg PO HS 08/04/19 [History] Buprenorphine HCl [Belbuca] 300 mg PO BID 08/04/19 [History] Meloxicam 7.5 mg PO BID 08/04/19 [History] Hx Tetanus, Diphtheria Vaccination/Date Given: No Hx Influenza Vaccination/Date Given: No Hx Pneumococcal Vaccination/Date Given: No Travel Risk - International Travel Have you traveled outside of the country in past 3 weeks: No - Coronavirus Screening Are you exhibiting any of the following symptoms?: No Close contact with a COVID-19 positive Pt in past 14-21 Days: No - Review of Systems Constitutional: No Symptoms Eyes: No Symptoms Ears, Nose, & Throat: Other (Unable to swallow food or liquids or her own secretions) Respiratory: No Symptoms Cardiac: No Symptoms Abdominal/Gastrointestinal: No Symptoms Genitourinary Symptoms: No Symptoms Musculoskeletal: No Symptoms Skin: No Symptoms Neurological: No Symptoms Psychological: No Symptoms Endocrine: No Symptoms Hematologic/Lymphatic: No Symptoms Immunological/Allergic: No Symptoms All Other Systems: Reviewed and Negative - Past Medical History Pertinent Past Medical History: No Neurological History: Migraines ENT History: No Pertinent History Cardiac History: No Pertinent History Respiratory History: No Pertinent History Endocrine Medical History: No Pertinent History Musculoskeletal History: No Pertinent History GI Medical History: No Pertinent History History: No Pertinent History Psycho-Social History: No Pertinent History Female Reproductive Disorders: No Pertinent History Other Medical History: back pain - Past Surgical History Past Surgical History: Yes Neuro Surgical History: No Pertinent History Cardiac: No Pertinent History Respiratory: No Pertinent History Gastrointestinal: Cholecystectomy Genitourinary: No Pertinent History Female Surgical History: Section, Hysterectomy Other Surgical History: BROKEN NOSE REPAIR - Social History Smoking Status: Never smoker Exposure to second hand smoke: No Drug Use: none Patient Lives Alone: No - Nursing Vital Signs Nursing Vital Signs: Initial Vital Signs Temperature 97.0 F 09/09/21 19:48 Pulse Rate 86 09/09/21 19:48 Respiratory Rate 16 09/09/21 19:48 Blood Pressure 137/93 09/09/21 19:48 O2 Sat by Pulse Oximetry 97 09/09/21 19:48 Pain Scale Pain Intensity 3 - Physical Exam General Appearance: no apparent distress, alert, anxiety, obese Eye Exam: bilateral eye: normal inspection, PERRL, EOMI Ear Exam: bilateral ear: auricle normal Nasal Exam: normal inspection Throat Exam: normal, pharynx normal, moist mucus membranes, No excessive drooling Neck Exam: normal inspection, non-tender, supple, full range of motion Cardiovascular/Respiratory Exam: chest non-tender, no respiratory distress Abdominal Exam: non-tender Neurologic Exam: alert, oriented x 3, cooperative, 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, normal mood/affect, nml cerebellar function, nml station & gait, sensation nml Skin Exam: normal color, warm, dry SpO2 Interpretation: normal O2 Delivery: Room Air - Course Nursing assessment & vital signs reviewed: Yes Ordered Tests: Active Orders 24 hr Category Date Time Status IV Insertion STAT Care 09/09/21 20:36 Completed BMP Stat Lab 09/09/21 20:48 Completed CBC W DIFF Stat Lab 09/09/21 20:48 Completed Medication Summary Discontinued Medications Generic Name Dose Route Start Last Admin Trade Name Freq PRN Reason Stop Dose Admin Dexamethasone Sodium Phosphate Confirm 09/09/21 22:00 Dexamethasone Sod Phosphate 4 Mg/Ml Ml Administered 09/09/21 22:01 Dose 8 mg .ROUTE .STK-MED ONE Fentanyl Citrate Confirm 09/09/21 21:27 Fentanyl Citrate 100 Mcg/2 Ml* Vial Administered 09/09/21 21:28 Dose 100 mcg .ROUTE .STK-MED ONE Lactated Ringer's 1,000 mls @ 100 mls/hr 09/09/21 21:30 09/09/21 21:26 Lactated Ringers IV 10/09/21 21:29 100 mls/hr .Q10H LINDA Administration Lactated Ringer's Confirm 09/09/21 21:23 Lactated Ringers Administered 09/09/21 21:24 Dose 1,000 mls @ ud IV .STK-MED ONE Lidocaine HCl Confirm 09/09/21 21:57 Lidocaine - Mpf 2% 5 Ml Vial Administered 09/09/21 21:58 Dose 5 ml .ROUTE .STK-MED ONE Ondansetron HCl Confirm 09/09/21 22:00 Ondansetron Hcl 4 Mg/2 Ml Vial Administered 09/09/21 22:01 Dose 4 mg .ROUTE .STK-MED ONE Propofol Confirm 09/09/21 21:27 Propofol 10 Mg/Ml 20ml Vial Administered 09/09/21 21:28 Dose 200 mg IV .STK-MED ONE Succinylcholine Chloride Confirm 09/09/21 21:27 Succinylcholine Chloride 200mg/10 Ml Vial Administered 09/09/21 21:28 Dose 100 mg .ROUTE .STK-MED ONE Lab/Rad Data: Laboratory Result Diagrams 09/09/21 20:48 09/09/21 20:48 Laboratory Results 09/09/21 09/09/21 Range/Units 20:48 20:48 WBC 8.2 (4.0-10.5) x10^3/uL RBC 4.92 (4.1-5.4) x10^6/uL Hgb 14.7 (12.0-16.0) g/dL Hct 44.3 (35-47) % MCV 90.0 (78-100) fL MCH 29.9 (26-32) pg MCHC 33.2 (32-36) g/dL RDW 12.3 (11.5-14.0) % Plt Count 488 H (150-450) x10^3/uL MPV 9.6 (7.5-11.0) fL Gran % 63.9 (36.0-66.0) % Immature Gran % (Auto) 0.1 (0.00-0.4) % Nucleat RBC Rel Count 0.0 (0.00-0.1) % Eos # (Auto) 0.10 (0-0.5) x10^3/uL Immature Gran # (Auto) 0.01 (0.00-0.03) x10^3u/L Absolute Lymphs (auto) 2.24 (1.0-4.6) x10^3/uL Absolute Monos (auto) 0.55 (0.0-1.3) x10^3/uL Absolute Nucleated RBC 0.00 (0.00-0.01) x10^3u/L Lymphocytes % 27.5 (24.0-44.0) % Monocytes % 6.7 (0.0-12.0) % Eosinophils % 1.2 (0.00-5.0) % Basophils % 0.6 (0.0-0.4) % Absolute Granulocytes 5.20 (1.4-6.9) x10^3/uL Basophils # 0.05 (0-0.4) x10^3/uL Sodium 141 (137-145) mmol/L Potassium 3.8 (3.5-5.1) mmol/L Chloride 102 (98-107) mmol/L Carbon Dioxide 29 (22-30) mmol/L Anion Gap 13.9 (5-15) MEQ/L BUN 9 (7-17) mg/dL Creatinine 0.77 (0.52-1.04) mg/dL Estimated GFR > 60.0 ML/MIN Glucose 105 (74-106) mg/dL Calcium 9.8 (8.4-10.2) mg/dL - Progress Progress: unchanged Progress Note: 09/09/21 20:40 Medical decision making: This patient clinically and by history has a food bolus stuck in her esophagus. She has had some esophageal narrowing the past requiring balloon dilatation. She ate steak and was not aware that she had a food bolus stuck. It has not passed. I spoke with Dr. Johnathan Vela, general surgeon who stated that we did not need to do much for this patient here in the emergency department. We will place an intravenous line, we will obtain some basic lab work and he will formulate an operative team tonight and perform the EGD with removal of bolus and clear her her esophagus. I spoke to yard warehouse worker Katie and let her know about this plan and told her to contact Dr. Johnathan Vela. Discussed with Dr.: Other (Dr. Johnathan Vela) Counseled pt/family regarding: diagnosis - Departure Departure Disposition: [place] [place] Impression: Esophageal obstruction due to food impaction Condition: Stable Critical Care Time: No Referrals: MANEJET ROMERO SENIOR ADVOCATE [Primary Care Provider] - Follow up/PCP as directed
[2021-09-09 20:40] VITALS: O2SAT 96
[2021-09-09 20:50] LABS: Basophil (Absolute #) 0.05 x10^3/uL (0-0.4); Eosinophil % 1.2 % (0.00-5.0); Hematocrit 44.3 % (35-47); Hemoglobin 14.7 g/dL (12.0-16.0); Lymphocyte (Absolute #) 2.24 x10^3/uL (1.0-4.6); Lymphocytes % 27.5 % (24.0-44.0); Mean Corpuscular Hemoglobin 29.9 pg (26-32); Mean Corpuscular Hgb Concent. 33.2 g/dL (32-36); Mean Platelet Volume 9.6 fL (7.5-11.0); Monocyte (Absolute #) 0.55 x10^3/uL (0.0-1.3); Monocytes % 6.7 % (0.0-12.0); Neutrophil % 63.9 % (36.0-66.0); Platelet Count 488 x10^3/uL (150-450); Red Blood Count 4.92 x10^6/uL (4.1-5.4); Red Cell Distribution Width 12.3 % (11.5-14.0); White Blood Count 8.2 x10^3/uL (4.0-10.5)
[2021-09-09 21:02] LABS: ANION GAP 13.9 MEQ/L (5-15); BLOOD UREA NITROGEN 9 mg/dL (7-17); CHLORIDE 102 mmol/L (98-107); Calcium 9.8 mg/dL (8.4-10.2); Carbon Dioxide 29 mmol/L (22-30); Creatinine 1 0.77 mg/dL (0.52-1.04); EST GLOMERULAR FILTRATION RATE > 60.0 ML/MIN; Glucose 105 mg/dL (74-106); Potassium 3.8 mmol/L (3.5-5.1); SODIUM 141 mmol/L (137-145)
[2021-09-09 21:06] VITALS: BP 144/97; PULSE 80
[2021-09-09] MEDS ORDERED: Lactated Ringers 1,000 ML IV ONE (21:23)
[2021-09-09] MEDS ORDERED: DIPRIVAN 200 MG/20 ML IV ONE (21:27)
[2021-09-09] MEDS ORDERED: Quelicin Fliptop 200 MG/10 ML ONE (21:27)
[2021-09-09] MEDS ORDERED: SUBLIMAZE 100 MCG/2 ML ONE (21:27)
[2021-09-09] MEDS ORDERED: Lactated Ringers 1,000 ML IV SCH (21:30)
[2021-09-09] MEDS ORDERED: Xylocaine-Mpf 2% 5 Ml Vial ONE (21:57)
[2021-09-09] MEDS ORDERED: Zofran 4 MG/2 ML VIAL ONE (22:00)
[2021-09-09] MEDS ORDERED: Decadron 4 MG INJ ONE (22:00)
--- NOTE | 2021-09-10 08:07 | HP ---
CHIEF COMPLAINT: Inability to swallow. HISTORY OF PRESENT ILLNESS: The patient is a 46-year-old female with past medical history of esophageal stricture. The patient states that she had an esophageal stent but that this was done by Dr. Vela but none of the [facility] do esophageal stents. She does say that it got ballooned and most likely she had a balloon dilation around two years ago and her symptoms dramatically improved. She is on a daily proton pump inhibitor. She does continue to have quite a bit of reflux symptoms and recently has been having worsening dysphagia and then tonight was eating meat and vegetables and got a piece stuck and was unable to swallow even liquids or secretions. She did call the office and they recommended coming to the emergency room and there she was not handling her secretions and we set her up for EGD. She otherwise has no complaints. No abdominal pain. REVIEW OF SYSTEMS: Otherwise negative. PAST MEDICAL HISTORY: Chronic pain. Gastroesophageal reflux disease. Spine disease. Reflux. Anxiety. Depression. Migraines. PAST SURGICAL HISTORY: Cholecystectomy. Hysterectomy. Shoulder surgery. Spine injection. Spine fusion FAMILY HISTORY: No bleeding or anesthetic complications. SOCIAL HISTORY: Not a smoker. Not a daily drinker. MEDICATIONS: Reviewed as listed. ALLERGIES: PHENERGAN. SULFA. PENICILLIN. PHYSICAL EXAMINATION: Temperature 97F, heart rate 80, blood pressure 144/97, respiratory rate 18. O2 saturation 96% on room air. She is in no acute distress. She does have a spittoon and is slightly tearful. NECK: Symmetric without mass. CHEST: Nonlabored respirations. HEART: Regular rate and rhythm. ABDOMEN: Obese, nondistended, soft, nontender to palpation. EXTREMITIES: No peripheral edema. Moving all extremities. NEURO: Hafsa Coma Scale (GCS) 15. Appropriate mood and affect. LAB DATA AND TESTS: Laboratory studies: White count 8, hemoglobin 14.7, PLT count 488,000. ASSESSMENT AND PLAN: This is a 46-year-old female with likely esophageal stricture definitely with a food bolus impaction. The plan is to proceed with EGD under general anesthetic.
--- NOTE | 2021-09-10 08:31 | OP ---
SURGERY DATE/TIME: 09/09/20212152 PREOPERATIVE DIAGNOSIS: Esophageal food bolus. POSTOPERATIVE DIAGNOSES: 1) Esophageal food bolus. 2) Esophagitis. 3) Gastritis. 4) Esophageal stricture x2. PROCEDURE: 1) Removal of esophageal food bolus. 2) EGD. 3) Biopsy antrum. 4) Esophageal dilatation with 18 mm balloon. SURGEON: Johnathan Vela M.D. ANESTHESIA: General endotracheal anesthesia. SPECIMEN: Antrum for Helicobacter pylori. CONDITION: Patient condition stable. COMPLICATIONS: None. HISTORY: The patient is a 46-year-old female that has history of balloon dilation of the esophagus around two years ago that has had worsening dysphagia, had been eating meat and something got stuck. She is not handling any oral secretions. I discussed with her EGD with dilation and she elected to proceed. FINDINGS: A piece of meat stuck at the distal esophagus. There is mild gastritis. There is inadequate evaluation due to food in the stomach. There is distal esophageal stricture 37 to 40 cm benign intrinsic appearing that is balloon dilated to 18 mm. There is minimal stricture at cricopharyngeus that is balloon dilated to 18 mm with just minimal mucosal disruption. DESCRIPTION OF PROCEDURE: The patient was brought to the operating room. General anesthesia induced. She was routinely positioned, prepped and prepared. Time out is performed. Gastric scope is inserted and advanced through the mouth, advanced to the distal esophagus. There is a piece of meat stuck there which is easily able to be pushed forward into the stomach. There is residual food in the stomach. It was an inadequate evaluation. There is food at the pylorus. I was unable to get into the duodenum but there is mild gastritis with erythema. A biopsy is taken of the antrum for Helicobacter pylori. At the distal esophagus 37 to 40 cm, there is an intrinsic benign appearing esophageal stricture. The 18 mm balloon is inserted and then serially dilated up to 18 mm. It is held there for a minute. The balloon is then brought back through the esophagus. There is also apparent stricture at the cricopharyngeus. It might be partially due to the ET balloon but this is dilated up to 18 mm and then scope is reinserted. There is just minimal mucosal disruption at the cricopharyngeal stricture, essentially none. At the distal esophagus there is a satisfactory mucosal disruption without muscular involvement that is hemostatic, satisfactory. The stomach is suctioned out. The patient is then extubated and taken to recovery in stable condition. RECOMMENDATIONS: I recommend her switching to Protonix 40 mg p.o. b.i.d. We also gave her Carafate four times a day for one month. She needs to follow up in around two weeks in the office for pathology results. She also needs a repeat endoscopy in around a month and I suspect she will need a repeat dilation.
== END 2021-09-09 22:59 | disposition home or self-care (01) ==
LOC: ED 19:32
DX: K22.2 Esophageal obstruction (principal); T18.128A Food in esophagus causing other injury, initial encounter; K20.90 Esophagitis, unspecified without bleeding; K29.70 Gastritis, unspecified, without bleeding
CPT/HCPCS: 36000; 36415; 80048; 85025; 99140; 99283; C1726; J0330; J1100; J2405; J2704; J3010